=== PATIENT | female | born 1985 | race Two or more races ===

== ENCOUNTER 2022-05-11 01:39 | Emergency (ER) | payer OTHER ==
[~2022-05-11] VITALS: Ht 152.4 cm; Wt 82.0 kg
[2022-05-11 02:51] VITALS: BP 157/90
[2022-05-11] MEDS ORDERED: AZITTAB PO (03:53)
[2022-05-11] MEDS ORDERED: IBUP800T26 PO (03:53)
[2022-05-11] MEDS ORDERED: PROM1SOL4 PO (03:53)
[2022-05-11] MEDS ORDERED: METH4PAK PO (03:53)
[2022-05-11] MEDS ORDERED: DexAMETHasone SOD PHOS 10MG/1ML VIAL INJ PO ONE (04:00)
== END 2022-05-11 04:22 | disposition home or self-care (01) ==
LOC: ER 01:39
DX: R05.9 Cough, unspecified (principal); Z20.822 Contact with and (suspected) exposure to COVID-19
CPT/HCPCS: 36415; 71045; 87426; 87804; 99284; J1100; J7030